=== PATIENT | female | born 1980 | race Caucasian/White ===

== ENCOUNTER 2016-05-25 08:18 | Emergency (ER) | payer SELFPAY ==
--- NOTE | 2016-05-25 08:56 | ED CLINICAL REPORT ---
Clinical Report - Physicians/Mid Levels [facility] [address] [place] [address] 05/25/2016 8:19 Patient: CLAY LYLES Arrived- By private vehicle. Historian- patient. HISTORY OF PRESENT ILLNESS Chief Complaint: SKIN RASH. This started past few days and is still present and worsening. It was gradual in onset and has been constant but is not gone now. It is described as painful and burning. It has been located on the right knee. No cause has been identified. No recent medication, insect bite or food exposure. Was not recently exposed to poison tucker or poison oak. (reports having a superficial injury to the area and a small abrasion. Patient reports that the area has gotten warm, swollen, and painful since theinjury. Reports she had bumped it against a hard object. States that initially did not hurt over the next day started to become painful. Reports that her tetanus is up-to-date.). Similar symptoms previously: None. Recent medical care: Not recently seen/assessed. REVIEW OF SYSTEMS No fever, chills, nausea or vomiting. All systems otherwise negative, except as recorded above. PAST HISTORY See nurses notes. Tetanus immunization status is up-to-date. SOCIAL HISTORY Never smoker. Alcohol use. History of drug use: marijuana. Is a local resident. ADDITIONAL NOTES The nursing notes have been reviewed. PHYSICAL EXAM Vital Signs: 05/25/2016 08:33 BP: 111/77. HR: 73. RR: 18. O2 saturation: 100%. Temp: 97.5 F. Blood pressure normal. Oxygen saturation normal. Appearance: Alert. Oriented X3. No acute distress. CVS: Normal heart rate and rhythm. Respiratory: No respiratory distress. Breath sounds normal. Chest nontender. Abdomen: Nontender. No organomegaly. Skin: (area of erythema and warmth to the right anterior lateral aspect of the knee. Area measures approximately 8 cm x 6 cm. Small half centimeter area of skin abrasion in the middle of the area. No area of induration. No increasing pain with range of motion of the knee. no obvious joint effusion. Compartments are soft with no bony abnormalities. No petechiae. Patient is neurovascularly intact distal to the concerned area.). Extremities: Normal external inspection. Extremities nontender. Neuro: Oriented X 3. No motor deficit. PROGRESS AND PROCEDURES Course of Care: the patient is a pleasant 35-year-old female presenting for evaluation of right-sided knee pain. Based on patient's examination, patient has cellulitis of the knee. Patient has increasing warmth to the contralateral side. It is only located over the right lateral aspect of the knee. Patient does not have signs and symptoms that are consistent with septic joint. Do not feel patient needs to be evaluated for this entity at this time. Antibiotics have been ordered however patient states that she would like to take her antibiotics as a prescription. Patient states that she does not want to stay a little longer in the emergency department. Patient has no symptoms that would be concerning for sepsis. No systemic symptoms noted on history. Vital signs here in the emergency department are unremarkable. Do not the patient is being admitted to the hospital require further emergency department evaluation at this time. Do not feel laboratory studies would help or change management lead at this time. Discussed the patient workup, diagnosis, home care, follow-up, and return precautions. All questions answered. The patient expressed understanding of these instructions and was agreeable to them. Disposition: Discharged. Condition: good. CLINICAL IMPRESSION 05/25/2016 08:33 BP: 111/77. HR: 73. RR: 18. O2 saturation: 100%. Temp: 97.5 F. Blood pressure normal. Oxygen saturation normal. Cellulitis (acute right knee). INSTRUCTIONS Off work for 3 days. Warnings: GENERAL WARNINGS: Return or contact your physician immediately if your condition worsens or changes unexpectedly, if not improving as expected, or if other problems arise. Specifically return if pain, vomiting, bleeding, breathing difficulty or fever. Your Current Medications: CONTINUE TAKING THE FOLLOWING MEDICATIONS: None*. Prescription Medications: [place] 5 mg / 325 mg tablets: take 1 orally every 6 hours as needed for pain. Dispense twelve (12). No refill. Substitution is permissible. Doxycycline 100 mg: Take 1 capsule orally for 10 days. No refill. (Disp 20 caps) Follow-up: Return to the emergency department as needed. Follow up with your doctor in three days. Reason for referral: recheck today's concerns. Summary of care provided to patient via paper. Screening today revealed the patient's blood pressure to be in the normal range. The patient should follow up with a primary care provider for blood pressure management. (Electronically signed by Rahul Hilton Dr. 05/29/2016 5:59)
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
--- NOTE | 2016-05-25 08:56 | ED CLINICAL REPORT ---
Clinical Report - Physicians/Mid Levels [facility] [address] [place] [address] 05/25/2016 8:19 Patient: CLAY LYLES Arrived- By private vehicle. Historian- patient. HISTORY OF PRESENT ILLNESS Chief Complaint: SKIN RASH. This started past few days and is still present and worsening. It was gradual in onset and has been constant but is not gone now. It is described as painful and burning. It has been located on the right knee. No cause has been identified. No recent medication, insect bite or food exposure. Was not recently exposed to poison tucker or poison oak. (reports having a superficial injury to the area and a small abrasion. Patient reports that the area has gotten warm, swollen, and painful since theinjury. Reports she had bumped it against a hard object. States that initially did not hurt over the next day started to become painful. Reports that her tetanus is up-to-date.). Similar symptoms previously: None. Recent medical care: Not recently seen/assessed. REVIEW OF SYSTEMS No fever, chills, nausea or vomiting. All systems otherwise negative, except as recorded above. PAST HISTORY See nurses notes. Tetanus immunization status is up-to-date. SOCIAL HISTORY Never smoker. Alcohol use. History of drug use: marijuana. Is a local resident. ADDITIONAL NOTES The nursing notes have been reviewed. PHYSICAL EXAM Vital Signs: 05/25/2016 08:33 BP: 111/77. HR: 73. RR: 18. O2 saturation: 100%. Temp: 97.5 F. Blood pressure normal. Oxygen saturation normal. Appearance: Alert. Oriented X3. No acute distress. CVS: Normal heart rate and rhythm. Respiratory: No respiratory distress. Breath sounds normal. Chest nontender. Abdomen: Nontender. No organomegaly. Skin: (area of erythema and warmth to the right anterior lateral aspect of the knee. Area measures approximately 8 cm x 6 cm. Small half centimeter area of skin abrasion in the middle of the area. No area of induration. No increasing pain with range of motion of the knee. no obvious joint effusion. Compartments are soft with no bony abnormalities. No petechiae. Patient is neurovascularly intact distal to the concerned area.). Extremities: Normal external inspection. Extremities nontender. Neuro: Oriented X 3. No motor deficit. PROGRESS AND PROCEDURES Course of Care: the patient is a pleasant 35-year-old female presenting for evaluation of right-sided knee pain. Based on patient's examination, patient has cellulitis of the knee. Patient has increasing warmth to the contralateral side. It is only located over the right lateral aspect of the knee. Patient does not have signs and symptoms that are consistent with septic joint. Do not feel patient needs to be evaluated for this entity at this time. Antibiotics have been ordered however patient states that she would like to take her antibiotics as a prescription. Patient states that she does not want to stay a little longer in the emergency department. Patient has no symptoms that would be concerning for sepsis. No systemic symptoms noted on history. Vital signs here in the emergency department are unremarkable. Do not the patient is being admitted to the hospital require further emergency department evaluation at this time. Do not feel laboratory studies would help or cell changer at this time. Discussed the patient workup, diagnosis, home care, follow-up, and return precautions. All questions answered. The patient expressed understanding of these instructions and was agreeable to them. Disposition: Discharged. Condition: good. CLINICAL IMPRESSION 05/25/2016 08:33 BP: 111/77. HR: 73. RR: 18. O2 saturation: 100%. Temp: 97.5 F. Blood pressure normal. Oxygen saturation normal. Cellulitis (acute right knee). INSTRUCTIONS Off work for 3 days. Warnings: GENERAL WARNINGS: Return or contact your physician immediately if your condition worsens or changes unexpectedly, if not improving as expected, or if other problems arise. Specifically return if pain, vomiting, bleeding, breathing difficulty or fever. Your Current Medications: CONTINUE TAKING THE FOLLOWING MEDICATIONS: None*. Prescription Medications: [place] 5 mg / 325 mg tablets: take 1 orally every 6 hours as needed for pain. Dispense twelve (12). No refill. Substitution is permissible. Doxycycline 100 mg: Take 1 capsule orally for 10 days. No refill. (Disp 20 caps) Follow-up: Return to the emergency department as needed. Follow up with your doctor in three days. Reason for referral: recheck today's concerns. Summary of care provided to patient via paper. Screening today revealed the patient's blood pressure to be in the normal range. The patient should follow up with a primary care provider for blood pressure management. (Electronically signed by Rahul Hilton Dr. 05/29/2016 5:59)
--- NOTE | 2016-05-29 05:59 | ED MAR SUMMARY ---
..... Medication Administration Record [facility] [address] [place], [place] [id number] Patient: CLAY LYLES Visit ID: [id number] 35y, F Weight: 68.0 kg Height/Length: 66 in BMI: 24.2 ALLERGIES: Amoxicillin
--- NOTE | 2016-05-29 05:59 | ED DISCHARGE INSTRUCTIONS ---
Patient: CLAY LYLES General Instructions [facility] VisitID: [id number] [place] [address] 35y, F Registration Date/Time: 05/25/2016 05/25/2016 08:33 BP: 111/77. HR: 73. RR: 18. O2 saturation: 100%. Temp: 97.5 F. Blood pressure normal. Oxygen saturation normal. Cellulitis (acute right knee). INSTRUCTIONS Off work for 3 days. Warnings: GENERAL WARNINGS: Return or contact your physician immediately if your condition worsens or changes unexpectedly, if not improving as expected, or if other problems arise. Specifically return if pain, vomiting, bleeding, breathing difficulty or fever. Your Current Medications: CONTINUE TAKING THE FOLLOWING MEDICATIONS: None*. Prescription Medications: [place] 5 mg / 325 mg tablets: take 1 orally every 6 hours as needed for pain. Dispense twelve (12). No refill. Substitution is permissible. Doxycycline 100 mg: Take 1 capsule orally for 10 days. No refill. (Disp 20 caps) Follow-up: Return to the emergency department as needed. Follow up with your doctor in three days. Reason for referral: recheck today's concerns. Summary of care provided to patient via paper. Screening today revealed the patient's blood pressure to be in the normal range. The patient should follow up with a primary care provider for blood pressure management. ADDITIONAL INFORMATION Cellulitis You have an infection of the skin known as cellulitis. This usually starts with a scrape, cut, insect bite, blister or other opening in the skin which becomes infected. This is a serious condition. It must be watched closely to be sure the infection is not spreading. With antibiotic treatment, the size of the red area will gradually shrink in size until the skin returns to normal. This will take 7-10 days. The red area should never increase in size once the antibiotic medicine has been started. Occasionally, an infection will be resistant to one antibiotic and another one will have to be used. Home Care: 1) Limit the use of the affected part, since excess movement can cause the infection to spread. 2) If the infection is on your leg, walk as little as possible during the first few days of the treatment. Keep your leg elevated while sitting. This will reduce swelling. 3) Take all of the antibiotic medicine exactly as directed until it is gone. Be careful not to miss any doses, especially during the first seven days. Follow Up with your doctor or this facility as directed. Check the infected area daily for the warning signs listed below. Get Prompt Medical Attention if any of the following occur: -- Spreading area of redness -- Increasing swelling or pain -- Appearance of pus or drainage -- Fever over 100.4 F (38.0 C) oral, or over 101.4 F (38.6 C) rectal, after two days on antibiotics Hydrocodone Bitartrate, Acetaminophen Oral tablet What is this medicine? ACETAMINOPHEN; HYDROCODONE (a set a LUIS ENRIQUE natividad fen; kala droe KOE done) is a pain reliever. It is used to treat mild to moderate pain. How should I use this medicine? Take this medicine by mouth. Swallow it with a full glass of water. Follow the directions on the prescription label. If the medicine upsets your stomach, take the medicine with food or milk. Do not take more than you are told to take. Talk to your nuclear power plant engineer regarding the use of this medicine in children. This medicine is not approved for use in children. What side effects may I notice from receiving this medicine? Side effects that you should report to your doctor or health nursing care attendant as soon as possible: allergic reactions like skin rash, itching or hives, swelling of the face, lips, or tongue breathing problems confusion feeling faint or lightheaded, falls stomach pain yellowing of the eyes or skin Side effects that usually do not require medical attention (report to your doctor or health nursing care attendant if they continue or are bothersome): nausea, vomiting stomach upset What may interact with this medicine? alcohol antihistamines isoniazid medicines for depression, anxiety, or psychotic disturbances medicines for sleep muscle relaxants naltrexone narcotic medicines (opiates) for pain phenobarbital ritonavir tramadol What if I miss a dose? If you miss a dose, take it as soon as you can. If it is almost time for your next dose, take only that dose. Do not take double or extra doses. Where should I keep my medicine? Keep out of the reach of children. This medicine can be abused. Keep your medicine in a safe place to protect it from theft. Do not share this medicine with anyone. Selling or giving away this medicine is dangerous and against the law. Store at room temperature between 15 and 30 degrees C (59 and 86 degrees F). Protect from light. Keep container tightly closed. Throw away any unused medicine after the expiration date. Discard unused medicine and used packaging carefully. Pets and children can be harmed if they find used or lost packages. What should I tell my health care provider before I take this medicine? They need to know if you have any of these conditions: brain tumor Crohn's disease, inflammatory bowel disease, or ulcerative colitis drink more than 3 alcohol-containing drinks per day drug abuse or addiction head injury heart or circulation problems kidney disease or problems going to the bathroom liver disease lung disease, asthma, or breathing problems an unusual or allergic reaction to acetaminophen, hydrocodone, other opioid analgesics, other medicines, foods, dyes, or preservatives or trying to get breast-feeding What should I watch for while using this medicine? Tell your doctor or health nursing care attendant if your pain does not go away, if it gets worse, or if you have new or a different type of pain. You may develop tolerance to the medicine. Tolerance means that you will need a higher dose of the medicine for pain relief. Tolerance is normal and is expected if you take the medicine for a long time. Do not suddenly stop taking your medicine because you may develop a severe reaction. Your body becomes used to the medicine. This does NOT mean you are addicted. Addiction is a behavior related to getting and using a drug for a non-medical reason. If you have pain, you have a medical reason to take pain medicine. Your doctor will tell you how much medicine to take. If your doctor wants you to stop the medicine, the dose will be slowly lowered over time to avoid any side effects. You may get drowsy or dizzy when you first start taking the medicine or change doses. Do not drive, use machinery, or do anything that may be dangerous until you know how the medicine affects you. Stand or sit up slowly. There are different types of narcotic medicines (opiates) for pain. If you take more than one type at the same time, you may have more side effects. Give your health care provider a list of all medicines you use. Your doctor will tell you how much medicine to take. Do not take more medicine than directed. Call emergency for help if you have problems breathing. The medicine will cause constipation. Try to have a bowel movement at least every 2 to 3 days. If you do not have a bowel movement for 3 days, call your doctor or health nursing care attendant. Too much acetaminophen can be very dangerous. Do not take Tylenol (acetaminophen) or medicines that contain acetaminophen with this medicine. Many non-prescription medicines contain acetaminophen. Always read the labels carefully. Doxycycline Monohydrate Oral tablet What is this medicine? DOXYCYCLINE (dox enrrique elizondo) is a tetracycline antibiotic. It kills certain bacteria or stops their growth. It is used to treat many kinds of infections, like dental, skin, respiratory, and urinary tract infections. It also treats acne, Lyme disease, malaria, and certain sexually transmitted infections. How should I use this medicine? Take this medicine by mouth with a full glass of water. Follow the directions on the prescription label. It is best to take this medicine without food, but if it upsets your stomach take it with food. Take your medicine at regular intervals. Do not take your medicine more often than directed. Take all of your medicine as directed even if you think you are better. Do not skip doses or stop your medicine early. Talk to your nuclear power plant engineer regarding the use of this medicine in children. Special care may be needed. While this drug may be prescribed for children as young as 8 years old for selected conditions, precautions do apply. What side effects may I notice from receiving this medicine? Side effects that you should report to your doctor or health nursing care attendant as soon as possible: allergic reactions like skin rash, itching or hives, swelling of the face, lips, or tongue difficulty breathing fever itching in the rectal or genital area pain on swallowing redness, blistering, peeling or loosening of the skin, including inside the mouth severe stomach pain or cramps unusual bleeding or bruising unusually weak or tired yellowing of the eyes or skin Side effects that usually do not require medical attention (report to your doctor or health nursing care attendant if they continue or are bothersome): diarrhea loss of appetite nausea, vomiting What may interact with this medicine? antacids barbiturates control pills bismuth subsalicylate carbamazepine methoxyflurane other antibiotics phenytoin vitamins that contain iron warfarin What if I miss a dose? If you miss a dose, take it as soon as you can. If it is almost time for your next dose, take only that dose. Do not take double or extra doses. Where should I keep my medicine? Keep out of the reach of children. Store at room temperature, below 30 degrees C (86 degrees F). Protect from light. Keep container tightly closed. Throw away any unused medicine after the expiration date. Taking this medicine after the expiration date can make you seriously ill. What should I tell my health care provider before I take this medicine? They need to know if you have any of these conditions: liver disease long exposure to sunlight like working outdoors stomach problems like colitis an unusual or allergic reaction to doxycycline, tetracycline antibiotics, other medicines, foods, dyes, or preservatives or trying to get breast-feeding What should I watch for while using this medicine? Tell your doctor or health nursing care attendant if your symptoms do not improve. Do not treat diarrhea with over the counter products. Contact your doctor if you have diarrhea that lasts more than 2 days or if it is severe and watery. Do not take this medicine just before going to bed. It may not dissolve properly when you lay down and can cause pain in your throat. Drink plenty of fluids while taking this medicine to also help reduce irritation in your throat. This medicine can make you more sensitive to the sun. Keep out of the sun. If you cannot avoid being in the sun, wear protective clothing and use sunscreen. Do not use sun lamps or tanning beds/booths. control pills may not work properly while you are taking this medicine. Talk to your doctor about using an extra method of control. If you are being treated for a sexually transmitted infection, avoid sexual contact until you have finished your treatment. Your sexual partner may also need treatment. Avoid antacids, aluminum, calcium, magnesium, and iron products for 4 hours before and 2 hours after taking a dose of this medicine. If you are using this medicine to prevent malaria, you should still protect yourself from contact with mosquitos. Stay in screened-in areas, use mosquito nets, keep your body covered, and use an insect repellent. You have been given the following additional information: Cellulitis Hydrocodone Bitartrate, Acetaminophen Oral tablet Doxycycline Monohydrate Oral tablet Off work for 3 days. (Electronically signed by Rahul Hilton Dr. 05/29/2016 5:59)
--- NOTE | 2016-05-29 05:59 | ED MED RECONCILIATION SUMMARY ---
Patient: CLAY LYLES Medication Reconciliation Report [facility] VisitID: [id number] [place] [address] 35y, F Registration Date/Time: 05/25/2016 Weight: 68.0 kg Height/Length: 66 in. BMI: 24.2 ALLERGIES: Amoxicillin The patient's Home Medications are listed below: NONE. The source(s) of the original Home Medication information: Not obtained. The following Medications were given to the patient in the Emergency Department: None. The following Medications were prescribed to the patient: [place] 5 mg / 325 mg tablets: take 1 orally every 6 hours as needed for pain. Dispense twelve (12). No refill. Substitution is permissible. -- Rahul Hilton Dr. Doxycycline 100 mg: Take 1 capsule orally for 10 days. No refill.(Disp 20 caps) -- Rahul Hilton Dr.
--- NOTE | 2016-05-29 05:59 | ED MED RECONCILIATION SUMMARY ---
Patient: CLAY LYLES Medication Reconciliation Report [facility] VisitID: [id number] [place] [address] 35y, F Registration Date/Time: 05/25/2016 Weight: 68.0 kg Height/Length: 66 in. BMI: 24.2 ALLERGIES: Amoxicillin The patient's Home Medications are listed below: NONE. The source(s) of the original Home Medication information: Not obtained. The following Medications were given to the patient in the Emergency Department: None. The following Medications were prescribed to the patient: [place] 5 mg / 325 mg tablets: take 1 orally every 6 hours as needed for pain. Dispense twelve (12). No refill. Substitution is permissible. -- Rahul Hilton Dr. Doxycycline 100 mg: Take 1 capsule orally for 10 days. No refill.(Disp 20 caps) -- Rahul Hilton Dr.
--- NOTE | 2016-05-29 05:59 | ED MAR SUMMARY ---
..... Medication Administration Record [facility] [address] [place], [place] [id number] Patient: CLAY LYLES Visit ID: [id number] 35y, F Weight: 68.0 kg Height/Length: 66 in BMI: 24.2 ALLERGIES: Amoxicillin
== END 2016-05-25 09:10 | disposition home or self-care (01) ==
LOC: ED SRH 08:18
DX: L03.115 Cellulitis of right lower limb (principal); Z88.1 Allergy status to other antibiotic agents

== ENCOUNTER 2016-09-20 00:30 | Emergency (ER) | payer OTHER ==
--- NOTE | 2016-09-20 03:29 | ED ORDER SUMMARY ---
..... Patient: CLAY LYLES OrderSheet [facility] VisitID: [id number] [address] [place] [address] 35y, F Registration Date/Time: 09/20/2016 ORDER SHEET Weight: 56.6 kg (stated) Allergies: Amoxicillin GENERAL ORDERS: I&D Tray (02:20 09/20/2016 Renée Atwood) (Ack 2:34 JQuivey R.N.) (2:39 [facility] ER Fire And Explosion Investigator) MEDICATION ORDERS: Lidocaine-Epinephrine Injection 1% (place at bedside) (02:20 09/20/2016 Renée Atwood) (Ack 2:31 JQuivey R.N.) (2:35 JQuivey R.N.) Doxycycline Hyclate PO 100 mg (NOW) (03:26 09/20/2016 Renée Atwood) (Ack 3:28 HKone R.N.) (3:40 HKone R.N.) IV FLUIDS: ORDER SHEET NOTES: [Electronically signed by Ivis Mooney R.N. (03:58 09/20/2016)] [Electronically signed by Rahul Hilton Dr. (05:05 09/22/2016)] [Electronically locked/signed by Ivis Mooney R.N. (03:58 09/20/2016)]
--- NOTE | 2016-09-20 03:29 | ED NURSING NOTES ---
Clinical Report - [facility] [address] [place] [address] 09/20/2016 0:33 Patient: CLAY LYLES TRIAGE Triage time 0047. Acuity: LEVEL 3. Chief Complaint: BOIL. MALLORY COMA SCORE: [place] Coma Scale: 15- eyes open spontaneously (4); best verbal response- oriented x 4 (5); best motor response- obeys commands (6). --00:56 Ivis Mooney R.N. 00:47 09/20/16. BP: 127/96. HR: 85. RR: 18 (unlabored). O2 saturation: 100% on room air. Temp: 97.7 F (oral). Pain level now: 11/17. --00:56 Ivis Mooney R.N. Chief Complaint: lump to left arm. correction to prior entry -. --01:05 Ivis Mooney R.N. Weight: 56.6 kg stated. Height/Length: 65 inches Per Patient. BMI: 20.8. --00:47 Ivis Mooney R.N. Medications Suboxone Sublingual. --00:50 Ivis Mooney R.N. Medication/allergy information source: the patient. --00:56 Ivis Mooney R.N. Allergies Amoxicillin.(rash) (was recently on this for Strep back in 04/25. Pt states she broke out into a rash. ) --00:50 Ivis Mooney R.N. History Arrived by private vehicle. Historian: patient. Primary physician (Dr. Vicente, [facility]). ( pt c/o lump to left arm x 4-5 days. pt states it appeared after shooting up with heroin.). Reported as located on the left arm. Onset. (4-5 days ago). It is described as painful. Treatment PLATE MAKER ZINC: None. PAST MEDICAL HX: Last normal menstrual period was 2 weeks ago. SOCIAL HX: Heavy tobacco smoker (cigarette)- 1 pack per day. History of heavy IV drug use: heroin, methamphetamines. No alcohol use. ABUSE ASSESSMENT: No report of abuse. FALL RISK ASSESSMENT: Fall risk assessment completed. No fall risk identified. NUTRITIONAL RISK ASSESSMENT: The nutritional risk assessment revealed no deficiencies. FUNCTIONAL ASSESSMENT: Functional assessment: no impairments noted. LEARNING NEEDS ASSESSMENT: The learning needs assessment revealed no barriers. SKIN INTEGRITY ASSESSMENT: Skin integrity risk assessment completed. No skin integrity risk identified. --00:56 Ivis Mooney R.N. PROBLEMS: Alcohol Withdrawal. Leukocytosis. Migraine Headache. Hypokalemia. Pancreatitis. Dental Pain. Back Pain. Lifestyle / Substance Problems. --00:51 Ivis Mooney R.N. ADDITIONAL SURGERIES: . Laparotomy. Oophorectomy. --00:51 Ivis Mooney R.N. Interventions ID band on patient. To treatment room. --00:56 Ivis Mooney R.N. PHYSICAL ASSESSMENT lump noted to left arm just above AC. firm, no redness. Ambulatory to room. GENERAL / NEURO / PSYCH: Alert. Appears in pain. Oriented X 4. RESPIRATORY: Respirations not labored. CVS: Capillary refill less than 2 seconds. Pulses within normal limits. SKIN: Skin is warm and dry. Tenderness on the left arm. Swelling on the left arm. --01:02 Ivis Mooney R.N. NURSING PROGRESS NOTES Pulse oximeter and NIBP monitor placed on patient. Patient gowned. Head of bed elevated. Two patient identifiers checked. Call light placed in reach. Side rails up x 1. Bed placed in lowest position. Brakes of bed on. Patient ready for evaluation. --00:56 Ivis Mooney R.N. 02:35 09/20/2016 Lidocaine-Epinephrine (Lidocaine-Epinephrine) Injection 1 % given. (placed at bedside). --02:35 Ashvin Harrison R.N. 02:35. I & D: Preparation: Incision and Drainage tray set up. --02:35 Ashvin Harrison R.N. 03:40 09/20/2016 DOXYCYCLINE HYCLATE PO Tablets 100 mg given. Allergies verified and confirmed 5 rights. --03:40 Ivis Mooney R.N. DISPOSITION / DISCHARGE Departure time: 0355. Condition at departure: unchanged. No learning barriers present. Discharge instructions provided and reviewed with the patient. Reviewed medication(s). Prescription(s) given to the patient (Doxycycline). Patient verbalized understanding. Written instructions provided in [place]. The patient was discharged by the physician. She was discharged home and accompanied by public improvement inspector. She left the Emergency Department ambulatory and via private vehicle. Pocket Operator driving. Medication list reviewed and validated with the patient. --03:58 Ivis Mooney R.N. 03:53 09/20/16. BP: 118/80. HR: 81. RR: 18 (unlabored). O2 saturation: 100% on room air. Temp: deferred. Pain level now: 11/17. --03:58 Ivis Mooney R.N. Locked/Released at 09/20/2016 3:58 by Ivis Mooney R.N.
--- NOTE | 2016-09-20 03:29 | ED ORDER SUMMARY ---
..... Patient: CLAY LYLES OrderSheet [facility] VisitID: [id number] [address] [place] [address] 35y, F Registration Date/Time: 09/20/2016 ORDER SHEET Weight: 56.6 kg (stated) Allergies: Amoxicillin GENERAL ORDERS: I&D Tray (02:20 09/20/2016 Renée Atwood) (Ack 2:34 JQuivey R.N.) (2:39 [facility] ER Stained Glass Installer) MEDICATION ORDERS: Lidocaine-Epinephrine Injection 1% (place at bedside) (02:20 09/20/2016 Renée Atwood) (Ack 2:31 JQuivey R.N.) (2:35 JQuivey R.N.) Doxycycline Hyclate PO 100 mg (NOW) (03:26 09/20/2016 Renée Atwood) (Ack 3:28 HKone R.N.) (3:40 HKone R.N.) IV FLUIDS: ORDER SHEET NOTES: [Electronically signed by Ivis Mooney R.N. (03:58 09/20/2016)] [Electronically signed by Rahul Hilton Dr. (05:05 09/22/2016)] [Electronically locked/signed by Ivis Mooney R.N. (03:58 09/20/2016)]
--- NOTE | 2016-09-20 03:29 | ED CLINICAL REPORT ---
Clinical Report - Physicians/Mid Levels [facility] [address] [place] [address] 09/20/2016 0:33 Patient: CLAY LYLES Time Seen: 0120. Arrived- By private vehicle. Historian- patient. HISTORY OF PRESENT ILLNESS Chief Complaint: BOIL. This started past 3 - 4 days and is still present and worsening. It was gradual in onset and has been constant but is not gone now. It is described as painful. It has been located on the right upper extremity. A possible cause has been identified (asbcess). (states she had these in the past. hx of IV drug use.). Similar symptoms previously: Several times. Recent medical care: Not recently seen/assessed. REVIEW OF SYSTEMS No fever, difficulty breathing or chest pain. All systems otherwise negative, except as recorded above. PAST HISTORY See nurses notes. Tetanus immunization status is up-to-date. SOCIAL HISTORY Never smoker. History of drug use. Is a recovering addict. No alcohol use. No recent travel. Is a local resident. ADDITIONAL NOTES The nursing notes have been reviewed. PHYSICAL EXAM Vital Signs: 09/20/2016 00:47 BP: 127/96. HR: 85. RR: 18. O2 saturation: 100%. Temp: 97.7 F. Pain level now: 7/10. Blood pressure normal. Oxygen saturation normal. Appearance: Alert. Oriented X3. No acute distress. (pleasant, cooperative, polite). Eyes: Pupils equal, round and reactive to light. Conjunctivae and eyelids normal. ENT: Ears normal. Nose normal. Pharynx normal. CVS: Normal heart rate and rhythm. Heart sounds normal. Respiratory: No respiratory distress. Breath sounds normal. Chest nontender. Abdomen: Nontender. No organomegaly. Skin: (area of induration which is deep and somewhat difficult to palpate fully. It is located in the distal arm. It is located just above the antecubital fossa. It appears to be regular In contour. Measures approximately 44 x 5 cm. No area of fluctuance noted. Overlying erythema and warmth to the area. No extending area of infection. Compartments are soft. Arm is neurovascularly intact.). Extremities: Normal external inspection. Extremities nontender. Neuro: Oriented X 3. No motor deficit. No sensory deficit. PROGRESS AND PROCEDURES Course of Care: The patient is a pleasant 35-year-old female with past medical history significant for IV drug abuse presented for a fashion of left-sided Arm infection. Patient will likely need antibiotics. Had a discussion with the patient in regards to the location of the abscess. Because of the location, would like to evaluate with ultrasound for any vascular or neurovascular involvement or proximity with the abscess. Had spoken to patient in regards to management of abscesses and will likely need drainage at some point. Patient is agreeable to the treatment and plan. Bedside ultrasound confirms a fluid collection. Given patient's history and examination, would be concern for abscess. No significant neurovascular bundles noted close to the abscess. Patient is agreeable to bedside incision and drainage. During the course of the administration of lidocaine, Patient became severely nervous about the procedure. Patient states that she can no longer tolerate the procedure. Discussed with the patient other options that she has. Tried to encourage patient to bear with the procedure as this would be the best option For limiting the infection. Apportionment, patient changed her mind and was not agreeable to the incision and drainage of the Abscess. Expressed my concern for the patient's infection and was willing to perform the procedure if she changed her mind. Offered other alternatives as well as antibiotics. Also offered pain medication. Patient states that she would like to try antibiotics alone as well as warm compress. Discussed the patient workup here in the emergency department including diagnosis, home care, follow-up, and return precautions. All questions have been answered. The patient expressed understanding of these instructions and was agreeable to them. Do not feel I can force patient to undergo invasive medical procedures. Have offered other alternatives to the proposed treatment and plan. Although the patient is not agreeable to incision and drainage, overweight patient will be treated successfully with antibiotics. Disposition: Discharged. Condition: good. CLINICAL IMPRESSION 09/20/2016 00:47 BP: 127/96. HR: 85. RR: 18. O2 saturation: 100%. Temp: 97.7 F. Pain level now: 7/10. Blood pressure normal. Oxygen saturation normal. Cellulitis of the left elbow (proximal). Single deep abscess to the left upper extremity. Essential hypertension. INSTRUCTIONS Warnings: GENERAL WARNINGS: Return or contact your physician immediately if your condition worsens or changes unexpectedly, if not improving as expected, or if other problems arise. Specifically return if pain, vomiting, bleeding, breathing difficulty or fever. Your Current Medications: CONTINUE TAKING THE FOLLOWING MEDICATIONS: Suboxone Sublingual. Prescription Medications: Doxycycline 100 mg: Take 1 capsule orally every 12 hours for 10 days. No refill. (disp 20 caps) Follow-up: Return to the emergency department as needed. Follow up with your doctor in three. Reason for referral: recheck today's concerns. Summary of care provided to patient via paper. Screening today revealed the patient's blood pressure to be in the normal range. The patient should follow up with a primary care provider for blood pressure management. Understanding of the discharge instructions verbalized by patient. (Electronically signed by Rahul Hilton Dr. 09/22/2016 5:05)
--- NOTE | 2016-09-20 03:29 | ED NURSING NOTES ---
Clinical Report - Nurses [facility] [address] [place] [address] 09/20/2016 0:33 Patient: CLAY LYLES TRIAGE Triage time 0047. Acuity: LEVEL 3. Chief Complaint: BOIL. MALLORY COMA SCORE: [place] Coma Scale: 15- eyes open spontaneously (4); best verbal response- oriented x 4 (5); best motor response- obeys commands (6). --00:56 Ivis Mooney R.N. 00:47 09/20/16. BP: 127/96. HR: 85. RR: 18 (unlabored). O2 saturation: 100% on room air. Temp: 97.7 F (oral). Pain level now: 11/17. --00:56 Ivis Mooney R.N. Chief Complaint: lump to left arm. correction to prior entry -. --01:05 Ivis Mooney R.N. Weight: 56.6 kg stated. Height/Length: 65 inches Per Patient. BMI: 20.8. --00:47 Ivis Mooney R.N. Medications Suboxone Sublingual. --00:50 Ivis Mooney R.N. Medication/allergy information source: the patient. --00:56 Ivis Mooney R.N. Allergies Amoxicillin.(rash) (was recently on this for Strep back in 04/25. Pt states she broke out into a rash. ) --00:50 Ivis Mooney R.N. History Arrived by private vehicle. Historian: patient. Primary physician (Dr. Vicente, [facility]). ( pt c/o lump to left arm x 4-5 days. pt states it appeared after shooting up with heroin.). Reported as located on the left arm. Onset. (4-5 days ago). It is described as painful. Treatment INVASIVE CARDIOLOGIST: None. PAST MEDICAL HX: Last normal menstrual period was 2 weeks ago. SOCIAL HX: Heavy tobacco smoker (cigarette)- 1 pack per day. History of heavy IV drug use: heroin, methamphetamines. No alcohol use. ABUSE ASSESSMENT: No report of abuse. FALL RISK ASSESSMENT: Fall risk assessment completed. No fall risk identified. NUTRITIONAL RISK ASSESSMENT: The nutritional risk assessment revealed no deficiencies. FUNCTIONAL ASSESSMENT: Functional assessment: no impairments noted. LEARNING NEEDS ASSESSMENT: The learning needs assessment revealed no barriers. SKIN INTEGRITY ASSESSMENT: Skin integrity risk assessment completed. No skin integrity risk identified. --00:56 Ivis Mooney R.N. PROBLEMS: Alcohol Withdrawal. Leukocytosis. Migraine Headache. Hypokalemia. Pancreatitis. Dental Pain. Back Pain. Lifestyle / Substance Problems. --00:51 Ivis Mooney R.N. ADDITIONAL SURGERIES: . Laparotomy. Oophorectomy. --00:51 Ivis Mooney R.N. Interventions ID band on patient. To treatment room. --00:56 Ivis Mooney R.N. PHYSICAL ASSESSMENT lump noted to left arm just above AC. firm, no redness. Ambulatory to room. GENERAL / NEURO / PSYCH: Alert. Appears in pain. Oriented X 4. RESPIRATORY: Respirations not labored. CVS: Capillary refill less than 2 seconds. Pulses within normal limits. SKIN: Skin is warm and dry. Tenderness on the left arm. Swelling on the left arm. --01:02 Ivis Mooney R.N. NURSING PROGRESS NOTES Pulse oximeter and NIBP monitor placed on patient. Patient gowned. Head of bed elevated. Two patient identifiers checked. Call light placed in reach. Side rails up x 1. Bed placed in lowest position. Brakes of bed on. Patient ready for evaluation. --00:56 Ivis Mooney R.N. 02:35 09/20/2016 Lidocaine-Epinephrine (Lidocaine-Epinephrine) Injection 1 % given. (placed at bedside). --02:35 Ashvin Harrison R.N. 02:35. I & D: Preparation: Incision and Drainage tray set up. --02:35 Ashvin Harrison R.N. 03:40 09/20/2016 DOXYCYCLINE HYCLATE PO Tablets 100 mg given. Allergies verified and confirmed 5 rights. --03:40 Ivis Mooney R.N. DISPOSITION / DISCHARGE Departure time: 0355. Condition at departure: unchanged. No learning barriers present. Discharge instructions provided and reviewed with the patient. Reviewed medication(s). Prescription(s) given to the patient (Doxycycline). Patient verbalized understanding. Written instructions provided in Maltese. The patient was discharged by the physician. She was discharged home and accompanied by weblogic developer. She left the Emergency Department ambulatory and via private vehicle. [employer] driving. Medication list reviewed and validated with the patient. --03:58 Ivis Mooney R.N. 03:53 09/20/16. BP: 118/80. HR: 81. RR: 18 (unlabored). O2 saturation: 100% on room air. Temp: deferred. Pain level now: 11/17. --03:58 Ivis Mooney R.N. Locked/Released at 09/20/2016 3:58 by Ivis Mooney R.N.
--- NOTE | 2016-09-22 05:05 | ED DISCHARGE INSTRUCTIONS ---
Patient: CLAY LYLES General Instructions [facility] VisitID: [id number] [address] [place] [address] 35y, F Registration Date/Time: 09/20/2016 09/20/2016 00:47 BP: 127/96. HR: 85. RR: 18. O2 saturation: 100%. Temp: 97.7 F. Pain level now: 7/10. Blood pressure normal. Oxygen saturation normal. Cellulitis of the left elbow (proximal). Single deep abscess to the left upper extremity. Essential hypertension. INSTRUCTIONS Warnings: GENERAL WARNINGS: Return or contact your physician immediately if your condition worsens or changes unexpectedly, if not improving as expected, or if other problems arise. Specifically return if pain, vomiting, bleeding, breathing difficulty or fever. Your Current Medications: CONTINUE TAKING THE FOLLOWING MEDICATIONS: Suboxone Sublingual. Prescription Medications: Doxycycline 100 mg: Take 1 capsule orally every 12 hours for 10 days. No refill. (disp 20 caps) Follow-up: Return to the emergency department as needed. Follow up with your doctor in three. Reason for referral: recheck today's concerns. Summary of care provided to patient via paper. Screening today revealed the patient's blood pressure to be in the normal range. The patient should follow up with a primary care provider for blood pressure management. Understanding of the discharge instructions verbalized by patient. ADDITIONAL INFORMATION Cellulitis You have an infection of the skin known as cellulitis. This usually starts with a scrape, cut, insect bite, blister or other opening in the skin which becomes infected. This is a serious condition. It must be watched closely to be sure the infection is not spreading. With antibiotic treatment, the size of the red area will gradually shrink in size until the skin returns to normal. This will take 7-10 days. The red area should never increase in size once the antibiotic medicine has been started. Occasionally, an infection will be resistant to one antibiotic and another one will have to be used. Home Care: 1) Limit the use of the affected part, since excess movement can cause the infection to spread. 2) If the infection is on your leg, walk as little as possible during the first few days of the treatment. Keep your leg elevated while sitting. This will reduce swelling. 3) Take all of the antibiotic medicine exactly as directed until it is gone. Be careful not to miss any doses, especially during the first seven days. Follow Up with your doctor or this facility as directed. Check the infected area daily for the warning signs listed below. Get Prompt Medical Attention if any of the following occur: -- Spreading area of redness -- Increasing swelling or pain -- Appearance of pus or drainage -- Fever over 100.4 F (38.0 C) oral, or over 101.4 F (38.6 C) rectal, after two days on antibiotics Abscess (Antibiotic Treatment Only) An abscess (sometimes called a boil) occurs when bacteria get trapped under the skin and begin to grow. Pus forms inside the abscess as the body responds to the bacteria. An abscess can occur with an insect bite, ingrown hair, blocked oil gland, pimple, cyst, or puncture wound. In the early stages, redness and tenderness are the only symptoms. Sometimes, this stage can be treated with antibiotics alone. If the abscess does not respond to antibiotic treatment, it will need to be drained with a small cut, under local anesthesia. Home care The following will help you care for your abscess at home: Soak the wound in hot water or apply hot packs (small towel soaked in hot water) to the area for 20 minutes at a time. Do this three to four times a day. Apply antibiotic cream or ointment onto the skin 3-4 times a day, unless something else was prescribed. Some ointments include an antibiotic plus a local pain reliever. If your doctor prescribed antibiotics, do not stop taking this medication until you have finished the prescribed course or the doctor tells you to stop. You may use an [id number] pain medication to control pain, unless another pain medicine was prescribed. If you have chronic liver or kidney disease or ever had a stomach ulcer or GI bleeding, talk with your doctor before using these any of these. Follow-up care Follow up with your health care provider as advised by our staff. Look at your wound each day for the signs of worsening infection listed below. When to seek medical care Get prompt medical attention if any of the following occur: An increase in redness or swelling Red streaks in the skin leading away from the abscess An increase in local pain or swelling Fever of 100.4F (38C) or higher, or as directed by your health care provider Pus or fluid coming from the abscess High Blood Pressure -- To Be Confirmed [No Tx] Your blood pressure was higher today than normal. Sometimes anxiety or pain can cause a temporary rise in blood pressure that later returns to normal. If your blood pressure is high on one measurement, this does not mean that you have hypertension (a chronic illness). However, you must have your blood pressure measured again within the next few days to find out if its still high. A normal blood pressure is 120/80 or less. The first (top) number is the "systolic" pressure. The second (bottom) number is the "diastolic" pressure. Hypertension exists when either the top number is 140 or higher, OR the bottom number is 90 or higher on repeated measurements. Blood pressure in the range of 120-140 (systolic) or 80-89 (diastolic) is considered "pre-hypertension". This means your are at risk for getting hypertension. You should have regular blood pressure checks to be sure your blood pressure is not rising. Home Care: Measure your blood pressure on 3 different days and write down the results. This can be done at your doctor's office or this facility. Some pharmacies and grocery stores offer automated blood pressure machines for your use. Follow Up: If your blood pressure is "high" (over 120/80) on 2 out of 3 days, you will need to follow up with your doctor for further evaluation and treatment. DO NOT PUT THIS OFF! Untreated high blood pressure increases the risk for heart attack, also known as acute myocardial infarction, or AMI, and stroke. It is a treatable condition. Get Prompt Medical Attention if any of the following occur: Chest pain or shortness of breath Severe headache Throbbing or rushing sound in the ears Nosebleed Sudden severe abdominal pain Extreme drowsiness, confusion or fainting Dizziness or vertigo (dizziness with spinning sensation) Weakness of an arm or leg or one side of the face Difficulty with speech or vision Doxycycline Monohydrate Oral tablet What is this medicine? DOXYCYCLINE (dox enrrique elizondo) is a tetracycline antibiotic. It kills certain bacteria or stops their growth. It is used to treat many kinds of infections, like dental, skin, respiratory, and urinary tract infections. It also treats acne, Lyme disease, malaria, and certain sexually transmitted infections. How should I use this medicine? Take this medicine by mouth with a full glass of water. Follow the directions on the prescription label. It is best to take this medicine without food, but if it upsets your stomach take it with food. Take your medicine at regular intervals. Do not take your medicine more often than directed. Take all of your medicine as directed even if you think you are better. Do not skip doses or stop your medicine early. Talk to your box sealing inspector regarding the use of this medicine in children. Special care may be needed. While this drug may be prescribed for children as young as 8 years old for selected conditions, precautions do apply. What side effects may I notice from receiving this medicine? Side effects that you should report to your doctor or health director of health care marketing as soon as possible: allergic reactions like skin rash, itching or hives, swelling of the face, lips, or tongue difficulty breathing fever itching in the rectal or genital area pain on swallowing redness, blistering, peeling or loosening of the skin, including inside the mouth severe stomach pain or cramps unusual bleeding or bruising unusually weak or tired yellowing of the eyes or skin Side effects that usually do not require medical attention (report to your doctor or health director of health care marketing if they continue or are bothersome): diarrhea loss of appetite nausea, vomiting What may interact with this medicine? antacids barbiturates control pills bismuth subsalicylate carbamazepine methoxyflurane other antibiotics phenytoin vitamins that contain iron warfarin What if I miss a dose? If you miss a dose, take it as soon as you can. If it is almost time for your next dose, take only that dose. Do not take double or extra doses. Where should I keep my medicine? Keep out of the reach of children. Store at room temperature, below 30 degrees C (86 degrees F). Protect from light. Keep container tightly closed. Throw away any unused medicine after the expiration date. Taking this medicine after the expiration date can make you seriously ill. What should I tell my health care provider before I take this medicine? They need to know if you have any of these conditions: liver disease long exposure to sunlight like working outdoors stomach problems like colitis an unusual or allergic reaction to doxycycline, tetracycline antibiotics, other medicines, foods, dyes, or preservatives or trying to get breast-feeding What should I watch for while using this medicine? Tell your doctor or health director of health care marketing if your symptoms do not improve. Do not treat diarrhea with over the counter products. Contact your doctor if you have diarrhea that lasts more than 2 days or if it is severe and watery. Do not take this medicine just before going to bed. It may not dissolve properly when you lay down and can cause pain in your throat. Drink plenty of fluids while taking this medicine to also help reduce irritation in your throat. This medicine can make you more sensitive to the sun. Keep out of the sun. If you cannot avoid being in the sun, wear protective clothing and use sunscreen. Do not use sun lamps or tanning beds/booths. control pills may not work properly while you are taking this medicine. Talk to your doctor about using an extra method of control. If you are being treated for a sexually transmitted infection, avoid sexual contact until you have finished your treatment. Your sexual partner may also need treatment. Avoid antacids, aluminum, calcium, magnesium, and iron products for 4 hours before and 2 hours after taking a dose of this medicine. If you are using this medicine to prevent malaria, you should still protect yourself from contact with mosquitos. Stay in screened-in areas, use mosquito nets, keep your body covered, and use an insect repellent. You have been given the following additional information: Cellulitis Abscess, Antiobiotic Treatment Only Hypertension, To Be Confirmed Doxycycline Monohydrate Oral tablet (Electronically signed by Rahul Hilton Dr. 09/22/2016 5:05)
--- NOTE | 2016-09-22 05:05 | ED MED RECONCILIATION SUMMARY ---
Patient: CLAY LYLES Medication Reconciliation Report [facility] VisitID: [id number] [address] [place] [address] 35y, F Registration Date/Time: 09/20/2016 Weight: 56.6 kg Height/Length: 65 in. BMI: 20.8 ALLERGIES: Amoxicillin The patient's Home Medications are listed below: CONTINUE TAKING THE FOLLOWING MEDICATIONS: Suboxone Sublingual The source(s) of the original Home Medication information: patient The following Medications were given to the patient in the Emergency Department: Lidocaine-Epinephrine [Injection] Injection 1 %, administered: 09/20/2016 2:35:00 AM DOXYCYCLINE HYCLATE [PO] PO 100 mg, administered: 09/20/2016 3:40:00 AM The following Medications were prescribed to the patient: Doxycycline 100 mg: Take 1 capsule orally every 12 hours for 10 days. No refill.(disp 20 caps) -- Rahul Hilton Dr.
--- NOTE | 2016-09-22 05:05 | ED MED RECONCILIATION SUMMARY ---
Patient: CLAY LYLES Medication Reconciliation Report [facility] VisitID: [id number] [address] [place] [address] 35y, F Registration Date/Time: 09/20/2016 Weight: 56.6 kg Height/Length: 65 in. BMI: 20.8 ALLERGIES: Amoxicillin The patient's Home Medications are listed below: CONTINUE TAKING THE FOLLOWING MEDICATIONS: Suboxone Sublingual The source(s) of the original Home Medication information: patient The following Medications were given to the patient in the Emergency Department: Lidocaine-Epinephrine [Injection] Injection 1 %, administered: 09/20/2016 2:35:00 AM DOXYCYCLINE HYCLATE [PO] PO 100 mg, administered: 09/20/2016 3:40:00 AM The following Medications were prescribed to the patient: Doxycycline 100 mg: Take 1 capsule orally every 12 hours for 10 days. No refill.(disp 20 caps) -- Rahul Hilton Dr.
--- NOTE | 2016-09-22 05:05 | ED MAR SUMMARY ---
..... Medication Administration Record [facility] [address] [place] [address] Patient: CLAY LYLES Visit ID: [id number] 35y, F Weight: 56.6 kg Height/Length: 65 in BMI: 20.8 ALLERGIES: Amoxicillin Given 02:35 09/20/2016 Ashvin Harrison, RSofiaN. Medication Administered: LIDOCAINE-EPINEPHRINE [INJECTION] (LIDOCAINE-EPINEPHRINE), Dose: 1 % Injection. Medication Ordered: Lidocaine-Epinephrine Injection 1% (place at bedside). Given 03:40 09/20/2016 Ivis Mooney RSofiaNSofia Medication Administered: DOXYCYCLINE HYCLATE [PO], Dose: 100 mg Tablets PO. Medication Ordered: Doxycycline Hyclate PO 100 mg (NOW).
--- NOTE | 2016-09-22 05:05 | ED MAR SUMMARY ---
..... Medication Administration Record [facility] [address] [place] [address] Patient: CLAY LYLES Visit ID: [id number] 35y, F Weight: 56.6 kg Height/Length: 65 in BMI: 20.8 ALLERGIES: Amoxicillin Given 02:35 09/20/2016 Ashvin Harrison, RSofiaN. Medication Administered: LIDOCAINE-EPINEPHRINE [INJECTION] (LIDOCAINE-EPINEPHRINE), Dose: 1 % Injection. Medication Ordered: Lidocaine-Epinephrine Injection 1% (place at bedside). Given 03:40 09/20/2016 Ivis Mooney RSofiaNSofia Medication Administered: DOXYCYCLINE HYCLATE [PO], Dose: 100 mg Tablets PO. Medication Ordered: Doxycycline Hyclate PO 100 mg (NOW).
== END 2016-09-20 03:55 | disposition home or self-care (01) ==
LOC: ED SRH 00:30
DX: L03.113 Cellulitis of right upper limb (principal); L02.413 Cutaneous abscess of right upper limb; I10 Essential (primary) hypertension; Z88.1 Allergy status to other antibiotic agents